=== PATIENT | male | born 1930 | race Caucasian/White ===

== ENCOUNTER 2016-07-19 05:00 | Inpatient (IN) | payer MEDICARE ==
[2016-07-19] VITALS (25 sets, daily range): BP systolic 127–184; BP diastolic 58–88; Ht 170.2 cm; Wt 75.5 kg
[~2016-07-19] VITALS: Ht 170.2 cm; Wt 75.5 kg
--- NOTE | ~2016-07-19 | HEMODYNAMI ---
PATIENT:PALMIRA PYLE MEDICAL RECORD: [id number] : 28 [id number] ADMISSION DATE: 07/19/16 Generatedon:07/19/20169:39 Patient name: PALMIRA PYLE Patient #: [id number] SSN: : [id number] Date of study: 07/19/2016 Page: Of Hemodynamic Procedure Report Patient Data Patient Demographics Procedure consent was obtained First Name: PALMIRA Gender: Male Last Name: LASHANDA : 1930 [facility] Initial: BOB Age: 86 year(s) Patient #: [id number] Race: Unknown Additional ID: [id number] Contact details Address: [address] [place] [address] State: [place] City: [place] Zip code: [address] Admission Admission Data Admission Date: 07/19/2016 Admission Time: 5:00 Room #: [facility] Procedure Procedure Types Cath Procedure Peripheral Cath Diagnostic Procedure Miscellaneous Procedure Description Procedure Date Procedure Date: 07/19/2016 Procedure Start Time: 8:25 Procedure Staff Name Function Cole Pemberton MD Performing Physician Lenora Orozco RT Scrub Pavan Garrison RN Nurse Katherin Nix RN Nurse Juan Garrett RT Monitor Procedure Data Cath Procedure Fluoroscopy Diagnostic fluoroscopy Total fluoroscopy Time: time: 12.4 min 12.4 min Diagnostic fluoroscopy Total fluoroscopy dose: 888 dose: 888 mGy mGy Contrast Material Contrast Material Type Amount (ml) Isovue 300 68 Entry Location Entry Primary Successful Side Size Upsize Upsize Entry Closure Succes sful Closure Location (Fr) 1 (Fr) 2 (Fr) Remarks Device Remarks Femoral Right 5 Fr 6 Fr Mynx artery Long Transit Bus Operator 6Fr/7Fr Diagnostic catheters Device Type Used For End Catheter Placement Merit Impress Kevin 5Fr 125CM catheter Merit Impress KA2 5Fr 65CM catheter Procedure Medications Medication Administration Route Dosage Oxygen NC 2 l/min Heparin Flush Bag added to field 2 bags (1000units/500ml NS) Lidocaine 1% added to field 20 Fentanyl I.V. 50 mcg Versed 1 mg Fentanyl I.V. 50 mcg Heparin Bolus I.V. 4000 units Versed 0.5 mg Versed I.V. 0.5 mg Hemodynamics Rest Heart Rate: 33 (bpm) Snapshots Pre Cath Intra NCS Post Cath Vital Signs Time Heart Resp SPO2 NIBP (mmHg) Rhythm Pain Sedation Rate (ipm) (%) Status Level (bpm) 8:08:37 95 17 97 188/106(155) NSR 0 (11) 10(A) , No pain 8:13:03 96 16 99 194/102(146) NSR 0 (11) 10(A) , No pain 8:17:25 96 17 99 181/99(144) NSR 0 (11) 10(A) , No pain 8:21:47 94 16 98 179/95(128) NSR 0 (11) 10(A) , No pain 8:26:09 95 16 99 192/96(151) NSR 0 (11) 9(A) , No pain 8:30:36 112 18 98 188/113(140) NSR 0 (11) 9(A) , No pain 8:35:02 89 16 98 177/92(140) NSR 0 (11) 9(A) , No pain 8:39:24 92 16 98 173/90(122) NSR 0 (11) 9(A) , No pain 8:43:46 97 16 98 161/77(111) NSR 0 (11) 9(A) , No pain 8:48:54 93 15 98 155/81(125) NSR 0 (11) 9(A) , No pain 8:53:47 92 15 98 167/83(121) NSR 0 (11) 9(A) , No pain 8:58:05 90 16 98 148/80(109) NSR 0 (11) 9(A) , No pain 9:02:20 88 15 98 151/79(124) NSR 0 (11) 9(A) , No pain 9:06:39 87 13 98 154/71(113) NSR 0 (11) 9(A) , No pain 9:10:55 84 15 97 125/67(93) NSR 0 (11) 9(A) , No pain 9:15:01 83 16 98 136/78(104) NSR 0 (11) 9(A) , No pain 9:19:12 82 15 97 138/77(104) NSR 0 (11) 9(A) , No pain 9:23:26 79 16 98 137/71(96) NSR 0 (11) 9(A) , No pain 9:27:24 82 15 98 130/99(110) NSR 0 (11) 9(A) , No pain 9:31:36 81 15 96 136/70(94) NSR 0 (11) 9(A) , No pain 9:35:48 80 16 97 125/78(103) NSR 0 (11) 10(A) , No pain Medications Time Medication Route Dose Verified Delivered Reason Notes Effectiveness by by 8:04:18 Oxygen NC 2 Pavan Pavan used for l/min Garrison Garrison executive admin RN 8:04:28 Heparin Flush added 2 Pavan Pavan used for Bag to bags Garrison Garrison procedure (1000units/500ml field RN RN NS) 8:04:36 Lidocaine 1% added 20ml Pavan Pavan used for to vial Garrison Garrison procedure field RN RN 8:20:54 Fentanyl I.V. 50 Katherin Katherin for back pain mcg Dinah Nix RN RN 8:30:04 Versed 1 mg Katherin Katherin for sedation Dinah Nix RN RN 8:30:12 Fentanyl I.V. 50 Katherin Katherin for sedation mcg Dinah Nix RN RN 8:40:44 Heparin Bolus I.V. 4000 Katherin Katherin for hep[anya n units Dinah Nix anticoagulation verified RN MAYKEL garrison rn 8:47:20 Versed 0.5 Katherin Katherin for sedation mg Dinah Nix RN RN 9:20:21 Versed I.V. 0.5 Katherin Katherin for sedation mg Dinah Nix RN cotton opener Log Time Note 7:47:59 Juan Garrett RT (R) (CV) sent for patient. Start room use. 7:48:05 Time tracking: Regular hours 7:48:10 Plan of Care:Hemodynamics will remain stable., Cardiac rhythm will remain stable., Comfort level will be maintained., Respiratory function will remain adequate., Patient/ family verbilizes understanding of procedure., Procedure tolerated without complication., Recovers from procedure without complications.. 7:48:15 Patient received from Outpatients to IR Alert and oriented. Tansferred to table in Supine position. 7:48:17 Correct patient and procedure confirmed by team. 7:48:19 Signed procedure consent form obtained from patient. 7:48:20 ECG and BP/O2 sat monitors applied to patient. 7:48:22 Full Disclosure recording started 7:48:22 7:48:26 H&P Date Dictated: 07/19/2016 H&P Addendum completed by physician on day of procedure. (MUST COMPLETE FOR ALL OUTPATIENTS). 7:48:27 Pre-procedure instructions explained to patient. 7:48:27 Pre-op teaching completed and patient verbalized understanding. 7:48:29 Family in waiting room. 7:48:31 Patient NPO since Midnight. 7:48:37 Is the patient allergic to Iodine/contrast media? No. 7:48:38 Is patient on blood thinner?Yes 7:48:42 ACC The patient was administered the following blood thiners within the last 24 hours: ACCAspirin, ACCPlavix 7:48:43 Patient diabetic? No. 7:48:48 Use device set IR Diagnostic 7:48:49 Acist Syringe opened to sterile field. 7:48:49 Acist Hand Control opened to sterile field. 7:48:50 Acist Manifold opened to sterile field. 7:48:50 Bag Decanter opened to sterile field. 7:48:51 Sterile Angiographic Pack opened to sterile field. 7:48:57 7:48:58 ----Pre-sedation anethsthesia assessment.---- 7:49:00 Previous problem with sedation/anesthesia? No ? 7:49:13 Snore? Yes 7:49:14 Sleep apnea? No 7:49:15 Deviated septum? No 7:49:17 Opens mouth fully? Yes 7:49:19 Sticks out tongue? Yes 7:49:21 Airway obstruction? No ? 7:49:24 Dentures? Yes out 7:57:50 Pre procedure: right dorsailis pedis pulse 0-Absent 7:58:09 Pre procedure: left dorsailis pedis pulse Doppler 7:58:13 Pre procedure: right posterior tibial pulse Doppler 7:58:16 Pre procedure: left posterior tibial pulse Doppler 7:58:22 Patient pain scale 0/10 no. 7:58:24 Sharps counted by scrub and verified by R.N. 7:58:25 Alarms reviewed by R. N. 7:58:28 Right groin area was prepped with chlora-prep and draped in sterile fashion 8:04:18 Oxygen 2 l/min NC was administered by Pavan Garrison RN; used for procedure; 8:04:28 Heparin Flush Bag (1000units/500ml NS) 2 bags added to field was administered by Pavan Garrison RN; used for procedure; 8:04:36 Lidocaine 1% 20ml vial added to field was administered by Pavan Garrison RN; used for procedure; 8:06:08 Vital chart was started 8:12:28 Baseline sample Acquired. 8:20:54 Fentanyl 50 mcg I.V. was administered by Katherin Nix RN; for back pain; 8:24:26 Physician arrived 8:24:26 --------ALL STOP TIME OUT------ 8:24:29 Final Timeout: patient, procedure, and site verified with staff and physician. All members of the team are in agreement. 8:24:32 Right groin site verified by team. 8:24:35 Physical assessment completed. ASA score P 3 - A patient with severe systemic disease as per Cole Pemberton MD. 8:24:52 Sedation plan: IV Moderate Sedation Versed, Fentanyl 8:25:02 Procedure started. 8:25:36 Local anesthetic to right femoral artery with Lidocaine 1% by Cole Pemberton MD.INITIAL ACCESS ONLY 8:25:46 Cook RAABE 6FR. 90cm guide sheath opened to sterile field. 8:25:47 Acist Syringe opened to sterile field. 8:25:47 TUBING, CONTRAST INJCTN HI PRES opened to sterile field. 8:25:48 Micropuncture VSI 4FR kit opened to sterile field. 8:25:48 Terumo 5Fr [place] Sheath opened to sterile field. 8:25:48 Cook BENTSON 145cm guide wire opened to sterile field. 8:25:49 Terumo ANGLE 260cm glide wire opened to sterile field. 8:25:49 Cook RICE 260 guide wire opened to sterile field. 8:25:53 A SampleOn Inc Impress Kevin 5Fr 125CM catheter was advanced over the wire and used for . 8:26:10 A 5 Fr sheath was inserted into the Right Femoral artery 8:29:06 Sheath upsized to a 6 Fr Long. 8:30:04 Versed 1 mg was administered by Katherin Nix RN; for sedation; 8:30:12 Fentanyl 50 mcg I.V. was administered by Katherin Nix RN; for sedation; 8:34:19 Model Sci Amplatz Super Stiff 75CM guide wire opened to sterile field. 8:35:[address] .035 145 glide wire opened to sterile field. 8:35:30 A A4 Data KA2 5Fr 65CM catheter was advanced over the wire and used for . 8:38:55 Inflation number: 1 A Cordis Powerflex Pro 6.0 x 40 x 80cm balloon was prepped and advanced across the Undefined1, then inflated to 0 MANISHA for 0:00 (min:sec). 8:40:44 Heparin Bolus 4000 units I.V. was administered by Katherin Nix RN; for anticoagulation; hep[shaq verified pavan garrison rn 8:46:[address] 260 .035 glide wire opened to sterile field. 8:47:20 Versed 0.5 mg was administered by Katherin Nix RN; for sedation; 8:56:34 Model Sci Choice PT Extra Support J 300cm .014 gu opened to sterile field. 8:59:14 SPIDER EMBOLIC PROTECTION DEVICE 5MM opened to sterile field. 8:59:21 Inflation number: 2 A Saber 3.0 X 2 X 150 balloon was prepped and advanced across the Undefined1, then inflated to 0 MANISHA for 0:00 (min:sec). 9:04:27 Inflation number: 3 A Dow VIATRAC 5 x 4 x 135 balloon was prepped and advanced across the Undefined1, then inflated to 0 MANISHA for 0:00 (min:sec). 9:04:39 PROTEGE RX TAPERED 8-6MM X 40MM X 135CM stent was deployed across Undefined1 . 9:05:49 St Abelardo 6Fr sheath opened to sterile field. 9:19:54 Cordis SMART 10 X 40 X 120 stent was deployed across Undefined1 . 9:20:21 Versed 0.5 mg I.V. was administered by Katherin Nix RN; for sedation; 9:24:18 Inflation number: 4 A Cordis Powerflex Pro 10.0 x 40 x 135cm balloon was prepped and advanced across the Undefined1, then inflated to 0 MANISHA for 0:00 (min:sec). 9:28:51 MYNX HAND COUNTER 6FR/7FR opened to sterile field. 9:29:15 Sheath removed intact; hemostasis achieved with Mynx Transit Bus Operator 6Fr/7Fr to the Right Femoral artery. 9:30:20 Procedure ended.(Physican Out) 9:30:44 Fluoroscopy time 12.40 minutes. 9:30:50 Fluoroscopy dose: 888 mGy 9:30:50 Flurop Dose total: 888 9:32:38 Contrast amount:Isovue 300 68ml. 9:32:40 Sharps counted by scrub and verified by R.N. 9:32:42 Insertion/operative site no bleeding no hematoma. 9:32:45 Post-op/insertion site Right Femoral artery dressed using a 4 x 4 and Tegaderm. 9:32:49 Post right femoral artery:stable 9:32:50 Post Procedure Pulses reassessed and unchanged 9:32:54 Post-procedure physical assessment completed. ASA score P 3 - A patient with severe systemic disease as per Cole Pemberton MD. 9:32:56 Post procedure rhythm: unchanged. 9:32:58 Post procedure instruction explained to patient.Patient verbalizes understanding. 9:32:58 Procedure and supply charges have been captured, reviewed, submitted and are correct. 9:37:40 Report given to ICU. 9:37:43 Patient transfered to ICU with Bed. 9:39:40 Vital chart was stopped Intervention Summary Intervention Notes Time ActionType Lesion and Equipment Action# Pressure Duration Attributes Used 8:38:55 Inflate Undefined1 Cordis 1 0 00:00 balloon Powerflex Pro 6.0 x 40 x 80cm balloon 8:59:21 Inflate Undefined1 Saber 3.0 2 0 00:00 balloon X 2 X 150 balloon 9:04:27 Inflate Undefined1 Dow 3 0 00:00 balloon VIATRAC 5 x 4 x 135 balloon 9:04:39 Deploy self Undefined1 PROTEGE 1 expanding RX stent TAPERED 8-6MM X 40MM X 135CM stent 9:19:54 Deploy self Undefined1 Cordis 1 expanding SMART 10 stent X 40 X 120 stent 9:24:18 Inflate Undefined1 Cordis 4 0 00:00 balloon Powerflex Pro 10.0 x 40 x 135cm balloon Device Usage Item Name Manufacture Quantity Catalog Number Hospital Part Current M inimal Lot# / Charge Number Stock Stock Serial# Code Acist Syringe Acist 2 34583 043395 114725 163542 2 0 Medical Systems Inc Acist Hand Acist 1 41230 265036 259319 770973 5 Control Medical Systems Inc Acist Acist 1 60975 216154 490380 165595 5 Manifold Medical Systems Inc Bag Decanter Microtek 1 2002S 035597 38118 119000 5 Medical Inc. Sterile Cardinal 1 [id number] 949391 050608 5 Angiographic Health Pack Oravel RAComtica Medical 1 [id number] 870408 708997 5 6FR. 90cm guide sheath TUBING, Merit 1 [id number] 430681 711171 918110 5 CONTRAST Medical INJCTN HI PRES Micropuncture VSI VASCULAR 1 7266V 853912 395714 5 VSI 4FR kit SOLUTIONS Terumo 5Fr Terumo 1 [id number] 165738 718147 743867 4 0 [place] Sheath Cook BENTSON Oravel Medical 1 [id number] 094453 462442 5 [id number] 145cm guide wire Terumo ANGLE Terumo 1 [id number] 896081 542974 448082 5 260cm glide wire Cook RICE [place] [facility] 1 [id number] 319515 381870 5 [id number] 260 guide wire Merit Impress Merit 1 [id number] 215934 617559 937420 5 Kevin 5Fr Medical 125CM catheter Model Sci Model 1 [id number] 124340 575245 807115 5 [id number] Amplatz Super Scientific Stiff 75CM guide wire Cook Cook Medical 1 C84215 834264 829085 [id number] .035 145 glide wire Merit Impress Merit 1 [id number] 997966 552979 5 KA2 5Fr 65CM Medical catheter Cordis Cardinal 1 [id number] 863950 220660 551465 5 Powerflex Pro Health 6.0 x 40 x 80cm balloon Cook Cook Medical 1 S47263 078650 507238 [id number] .035 glide wire Model Sci Model 1 [id number] 802245 535365 957759 5 [id number] Choice PT Scientific Extra Support J 300cm .014 gu SPIDER Medtronic 1 [id number] 643826 793123 5 EMBOLIC PROTECTION DEVICE 5MM Saber 3.0 X 2 Cardinal 1 [id number] 375496 821880 5 X 150 balloon Health Dow Dow 1 [id number] 102390 833885 277436 5 VIATRAC 5 x 4 Vascular x 135 balloon PROTEGE RX Ev3 1 [id number] 435524 31955 495129 5 [id number] TAPERED 8-6MM X 40MM X 135CM stent [facility] Abelardo 6Fr St Abelardo 1 794384 097022 427048 5 [id number] sheath Cordis SMART Cardinal 1 [id number] 285423 472255 5 [id number] 10 X 40 X 120 Health stent Cordis Cardinal 1 [id number] 148456 835013 140790 5 Powerflex Pro Health 10.0 x 40 x 135cm balloon MYNX HAND COUNTER Access 1 [id number] 016900 609395 5 [id number] 6FR/7FR Closure Signature Audit [place] Stage Time Signature Unsigned Intra-Procedure 07/19/2016 Juan 9:39:35 AM [place] RT (R) (CV) Signatures Monitor : Juan Signature : [place] RT Date : Time : [facility] [address] [facility] [address]
[~2016-07-19 05:00] MED LIST: BAYER CHEWABLE81 MG PO; COZAAR100 MG PO; LEVAQUIN750 MG PO; NORVASC10 MG PO; VITAMIN C250 MG PO; ZITHROMAX250 MG PO
[2016-07-19 06:10] LABS: BASOPHILS 0.3 % (0-2); EOSINOPHILS 2.5 % (0-7); HEMATOCRIT 46.1 % (42.0-54.0); HEMOGLOBIN 15.3 g/dL (13.5-17.5); IMMATURE GRANULOCYTES 0.3 % (0-5); LYMPHOCYTES 29.4 % (15-50); MCH 29.3 pg (26.0-34.0); MCHC 33.2 g/dL (31.0-37.0); MCV 88.1 fL (80.0-100.0); MEAN PLATELET VOLUME 11.4 fL (7.4-10.4); MONOCYTES 7.7 % (2-11); NEUTROPHILS 59.8 % (40-80); RBC 5.23 10x6/uL (4.20-6.10); RDW 14.1 % (11.5-14.5); WBC 6.9 10x3/uL (4.8-10.8)
[2016-07-19 06:13] LABS: PLATELET COUNT 169 10x3/uL (130-400)
[2016-07-19 06:18] LABS: ANION GAP 10.5 mmol/L (8-16); CALCIUM 8.9 mg/dL (8.5-10.1); CARBON DIOXIDE 30.2 mmol/L (21.0-32.0); CREATININE - SERUM 1.4 mg/dL (0.6-1.3); POTASSIUM - SERUM 3.7 mmol/L (3.5-5.1)
[2016-07-19 06:19] LABS: APTT 27.4 SECONDS (22.8-39.4); INR 0.98 (0.85-1.17); PROTIME 12.9 SECONDS (11.6-15.0)
[2016-07-19] MEDS ORDERED: PLAVIX75 MG PO (06:46)
[2016-07-19] MEDS ORDERED: FISH OIL 1,0001 CA1 PO (06:47)
--- NOTE | 2016-07-19 10:51 | NUR ---
1000 ADMISSION ASSESMENT IS COMPLETE SEE FLOW SHEET FORR FINDINGS.. PT IS AWQKE AND ALERT WITHOUT C/O.. THERE IS A CDI TRANSPARENT DRESSING ON THE RIGHT GROIN .. PIV IN THE LEFT WRIST WITH NS INFUSING.. NSR ON HEART MONITOR.. 1040 AT THE BEDSIDE .. UDPATE GIVEN AND PASSWORDD OBTAINED.. LEFT CELL PHONE WITH PT AT TTHE BEDSIDE.. 1100 GONE FROM BEDSIDE..
--- NOTE | 2016-07-19 17:48 | NUR ---
1200 WITHOUT VISITOR AT THIS TIME.. LUNCH SERVED AND HOB 30DEGREES PT IS FEEDING SELF.. PEDAL PULSES REMAIN AUDIBLE WITH DOPPLER. 1400WITHOUT CHANGES AT THIS TIME.. 1500 FAMILY IN TO SEE PT AND PT REQUEST THAT HIS WALLET AND BELONGINGS FROM THE HOSPITAL [facility] BE SENT HOME WITH HER.. ER ADMISSIONS CALLED AND INFORMED.. 1545 ER ADMISSIONS HERE WITH BELONGINGS.. 1600 DAUGHTER GONE FROM THE BEDSIDE.. 1630 DIET SERVED TO PT HOB ELEVATED .. 6 HOUR POST PROCEDURE TIME MET.. FEEDING SELF.. 1700 100 % DIET EATEN.. 1730 REMAINS WITH DOPPLER PULSES.. PT IS VERY GLAD STATES HE HAS NOT HAD PULSE IN FEET FOR A LONG TIME..
--- NOTE | 2016-07-19 19:30 | NUR ---
REPORT RECIEVED, SHIFT ASSESSMENT COMPLETE, PT IS ALERT AND ORIENTED, ON 2L NC WITH 97% O2 SAT, LUNGS CLEAR IN B/L UPPER LOBES, DIMINISHED IN B/L LOWER LOBES, S1S2, CM-NSR, PATENT LEFT WRIST PIV...SEE FLOW SHEET... ABDOMEN IS SOFT AND ROUND WITH ACTIVE BS, PATENT F/C WITH CONCENTRATED UOP, B/L PEDAL PULSES DOPPLERED, WILL CON'T TO MONITOR
--- NOTE | 2016-07-19 20:30 | NUR ---
F/C REMOVED AT THIS TIME PER PT REQUEST, 100 CC UOP IN URINAL AT THIS TIME, COMPLETE BATH AND LINEN CHANGE
--- NOTE | 2016-07-19 21:30 | NUR ---
NO VISITORS AT THIS TIME, WILL CON'T TO MONITOR
--- NOTE | 2016-07-19 23:15 | NUR ---
REASSESSMENT COMPLETE, NO CHANGES NOTED, PT RESTING AT THIS TIME, VSS, CALL LIGHT IN REACH
[2016-07-20] VITALS (12 sets, daily range): BP systolic 108–134; BP diastolic 49–83
--- NOTE | 2016-07-20 01:08 | NUR ---
PT RESTING AT THIS TIME, DENIES ANY NEEDS, WILL CON'T TO MONITOR
--- NOTE | 2016-07-20 03:30 | NUR ---
REASSESSMENT COMPLETE, NO CHANGES NOTED, PT DENIES ANY WANTS OR NEEDS AT THIS TIME, WILL CON'T TO MONITOR
--- NOTE | 2016-07-20 05:00 | NUR ---
NO NEEDS NOTED AT THIS TIME, WILL CON'T TO MONITOR
--- NOTE | 2016-07-20 09:58 | NUR ---
DISCHARGE PAPERWORK SIGNED AT THIS TIME. PT IS AWARE UP UPCOMING APPOINTMENTS AND STATES HE ALREADY HAD DISHARGE MEDS HOME MEDS. WILL BE DISCHARGED HOME VIA PERSONAL VEHICLE, PT STATES HE LIVES WITH SIGNIFICANT OTHER BUT STEP DAUGHTER WILL PICK HIM UP. WILL CONTINUE PLAN OF CARE.
--- NOTE | 2016-07-20 12:18 | NUR ---
FAMILY AT BEDSIDE FOR PT DISCHARGE TO TAKE HOME. NO QUESTIONS OR CONCERNS NOTED. IV TO LEFT WRIST DC CATHETER TIP INTACT. WILL CONTINUE PLAN OF CARE. WILL DISCHARGE PT SHORTLY.
--- NOTE | 2016-07-20 12:30 | NUR ---
PT DISCHARGED AT THIS TIME VIA PERSONAL VEHICLE WITH FAMILY. NO ACUTE DISTRESS NOTED. PT LEFT WITH ALL PERSONAL ITEMS, DISCHAGE PAPERWORK, TEACHING INFORMATION REGARDING CARTOID STENT PLACEMENT, AND UPCOMING APPOINTMENT INFORMATION. PT DENIED NEEDING ANY MEDS CALLED INTO PHARMACY. DENIES ANY FURTHER QUESTIONS OR CONCERNS. ASSISTED TO PERSONAL VEHICLE VIA WHEELCHAIR ACCOMPANIED BY HOSPITAL STAFF AND FAMILY. NO FURTHER ACTIONS.
== END 2016-07-20 13:26 | disposition home or self-care (01) | DRG 36 ==
LOC: D.ICU 05:00 → D.SDCHOLD 05:00 → D.ICU 09:53
PROVIDERS: ADMIT Radiology Diagnostic Radiology
PROC: 027 Heart and Great Vessels, Dilation (ICD-10-PCS; 2016-07-19)
PROC: 047C3ZZ Dilation of Right Common Iliac Artery, Percutaneous Approach (ICD-10-PCS; 2016-07-19)
PROC: 037K3DZ Dilation of Right Internal Carotid Artery with Intraluminal Device, Percutaneous Approach (ICD-10-PCS; principal; 2016-07-19 08:00)
DX: I65.21 Occlusion and stenosis of right carotid artery (principal); I35.0 Nonrheumatic aortic (valve) stenosis; I73.9 Peripheral vascular disease, unspecified

== ENCOUNTER → 2018-12-19 12:09 | Outpatient (CLI) | payer OTHER ==
[2017-04-10 22:49] VITALS: BMI 25.2
[~2018-12-19 12:09] MED LIST changes: +DOXYCYCLINE HY100 M2 PO; +FISH OIL 1,0001 CA1 PO; +PLAVIX75 MG PO
== END | disposition home or self-care (01) ==
LOC: D.US 12:09
PROVIDERS: ATTEND Internal Medicine Cardiovascular Disease
DX: I65.23 Occlusion and stenosis of bilateral carotid arteries (principal)